=== PATIENT | male | born 1955 | race Two or more races ===

== ENCOUNTER 2017-06-07 08:02 | Inpatient (IN) | payer OTHER ==
[~2017-06-07] VITALS: Ht 177.8 cm; Wt 98.0 kg
[2017-06-07] VITALS (14 sets, daily range): BP systolic 104–148; BP diastolic 69–95
[~2017-06-07 08:02] MED LIST: ceFAZolin 2gm/50ml Premix 50 ML IVPB ONE
[2017-06-07] MEDS ORDERED: SIMVASTATIN20 MG ORAL (08:58)
[2017-06-07] MEDS ORDERED: GABAPENTIN100 MG ORAL (09:01)
[2017-06-07] MEDS ORDERED: CYCLOBENZAPRINE10 MG ORAL (09:01)
[2017-06-07] MEDS ORDERED: MELOXICAM15 MG PO (09:01)
[2017-06-07] MEDS ORDERED: Thrombin 5000 units TOPIC ONE (09:47)
[2017-06-07] MEDS ORDERED: Vancomycin 1gm inj IVPB ONE (09:48)
[2017-06-07] MEDS ORDERED: Lacri-Lube Opth Oint 3.5gm ONE (09:48)
[2017-06-07] MEDS ORDERED: Bupivacaine w/Epi 0.5% 30ml Vial INJ ONE (09:48)
[2017-06-07] MEDS ORDERED: Thrombin 5000 units spray kit TOPIC ONE (09:48)
[2017-06-07] MEDS ORDERED: Gelfoam Absorbable 1gm powder pkt TOPIC ONE (09:49)
[2017-06-07] MEDS ORDERED: Bacitracin 50000 Units Vial ONE (09:49)
[2017-06-07] MEDS ORDERED: Propofol 10mg/ml 100ml btl IV ONE (11:00)
[2017-06-07] MEDS ORDERED: Sterile Water Irrig 1000ml IRRIG ONE (11:00)
[2017-06-07] MEDS ORDERED: NS Irrig 1000ml ONE (11:00)
[2017-06-07] MEDS ORDERED: Neostigmine 1mg/ml 10ml Inj ONE (11:00)
[2017-06-07] MEDS ORDERED: LR 1000ml ONE (11:00)
[2017-06-07] MEDS ORDERED: Glycopyrrolate 0.2mg/ml 1ml Vial ONE (11:00)
[2017-06-07] MEDS ORDERED: fentaNYL 100 mcg/2 mL IV ONE (11:00)
[2017-06-07] MEDS ORDERED: Zemuron 50mg/5ml Inj IV ONE (11:00)
[2017-06-07] MEDS ORDERED: Midazolam 2mg/2ml Inj ONE (11:00)
--- NOTE | 2017-06-07 11:06 | Pre-Procedure Note/Attestation ---
Pre-Procedure Note/Attestation Complete Prior to Procedure Procedure Narrative: left L5S1 microdecompression and microdiscectomy Indications for Procedure Pre-Operative Diagnosis: lumbar radiculopathy Attestation I attest that I discussed the nature of the procedure; its benefits; risks and complications; and alternatives (and the risks and benefits of such alternatives ), prior to the procedure, with the patient (or the patient's legal community health representative). I attest that, if there was a reasonable possibility of needing a blood transfusion, the patient (or the patient's legal community health representative) was given the [facility] standardized written summary, pursuant to the Elvis Villanova Blood Safety Act ([place] Health and Safety Code # 1645, as amended). I attest that I re-evaluated the patient just prior to the surgery and that there has been no change in the patient's H&P, except as documented below: SHERRY JOSEPH Jun 07, 2017 11:06
[2017-06-07] MEDS ORDERED: HYDROmorphone 1mg/ml Carpuject SUBQ PRN (11:15)
[2017-06-07] MEDS ORDERED: Norco 7.5mg/325mg tab ORAL PRN ×2 (11:15)
[2017-06-07] MEDS ORDERED: Naloxone 0.4mg/ml Inj IVP PRN (11:15)
[2017-06-07] MEDS ORDERED: Norco 5mg/325mg tab ORAL PRN (11:15)
[2017-06-07] MEDS ORDERED: NORCO 5-325 TA1 EACH ORAL (11:16)
[2017-06-07] MEDS ORDERED: SOMA350 MG PO (11:17)
[2017-06-07] MEDS: Hydromorphone 0.5mg/0.5ml inj IVP PRN ×2 (12:09→14:19)
--- NOTE | 2017-06-07 12:48 | Brief Operative Note ---
Immediate Post Operative Note Operative Note Pre-op Diagnosis: lumbar radiculopathy Procedure: L5S1 microdecompression and microdiscectomy Post-op Diagnosis: same as pre-op Findings: consistent w/pre-op dx studies Surgeon: She Site Identification Specialist: Elan Anesthesiologist: Stephanie Anesthesia: general Specimen: none Complications: none Condition: stable Fluids: 1.1 liters crystalloid Estimated Blood Loss: minimal - 10cc Drains: none Implant(s) used?: No SHERRY JOSEPH Jun 07, 2017 12:48
[2017-06-07] MEDS ORDERED: LR 1000ml 1,000 ML IVLG SCH (13:12)
[2017-06-07] MEDS ORDERED: Hydromorphone 0.5mg/0.5ml inj ONE (13:12)
--- NOTE | 2017-06-07 13:12 | Anethesia Preoperative Eval ---
Anesthesia Pre-op PMH/ROS General Date of Evaluation: Jun 07, 2017 Time of Evaluation: 11:00 Anesthesiologist: Stephanie ASA Score: ASA 1 Mallampati Score Class I : Soft palate, uvula, fauces, pillars visible Class II: Soft palate, uvula, fauces visible Class III: Soft palate, base of uvula visible Class IV: Only hard plate visible Mallampati Classification: Class II Surgeon: She Diagnosis: Lumbar Radiculopathy Surgical Procedure: Microdiscectomy Family History: no anesthesia problems Allergies: Coded Allergies: No Known Allergies (Unverified , 06/04/17) Medications: see eMAR Past Medical History Cardiovascular: Denies: CAD, HTN, ME, arrhythmia, other, valve dz Pulmonary: Denies: COPD, LUCIE, asthma, other Gastrointestinal/Genitourinary: Denies: CRI, ESRD, GERD, other Neurologic/Psychiatric: Denies: CVA, TIA, dementia, depression/anxiety, other Endocrine: Denies: DM, hypothyroidism, other, steroids HEENT: Denies: [place] (L), [place] (R), cataract (L), cataract (R), glaucoma, other Hematology/Immune: Denies: DVT, anemia, bleeding disorder, other Musculoskeletal/Integumentary: Denies: DDD, DJD, OA, RA, edema, other PMH Narrative: Denies PSxH Narrative: Intestinal blockage, ankle Anesthesia Pre-op Phys. Exam Physician Exam Last Vital Signs Date Time Temp Pulse Resp B/P Pulse Ox O2 Delivery O2 Flow Rate FiO2 06/07/17 08:56 97.0 66 18 142/85 98 Room Air Constitutional: NAD Neurologic: CN 2-12 intact Cardiovascular: RRR, no M/R/G Respiratory: CTA Gastrointestinal: S/NT/ND Airway Exam Mallampati Score: Class II MO: full ROM: full Teeth: intact Anesthesia Pre-op A/P Labs Wnl Studies Pre-op Studies: EKG - nsr Risk Assessment & Plan Assessment: Healthy male Plan: GETA Status Change Before Surgery: No Pre-Antibiotics Drug: Ancef Given Within 1 Hr of Incision: Yes Time Given: 11:15 YUMI LIM M.D. Jun 07, 2017 13:12
[2017-06-07] MEDS ORDERED: LORazepam Inj 2mg/ml 1ml IV PRN (13:15)
[2017-06-07] MEDS ORDERED: DiphenhydrAMINE 50mg/ml Inj IVP PRN (13:15)
[2017-06-07] MEDS ORDERED: Meperidine 25mg/0.5ml Inj (FOR RIGORS ONLY) IV PRN (13:15)
--- NOTE | 2017-06-07 13:16 | Immediate Post-Op Evaluation ---
Immediate Post-Op Evalulation Immediate Post-Op Evalulation Procedure: Microdiscectomy Date of Evaluation: Jun 07, 2017 Time of Evaluation: 13:15 IV Fluids: 1100 Estimated Blood Loss: 10 Blood Pressure Systolic: 113 Blood Pressure Diastolic: 81 Pulse Rate: 85 Respiratory Rate: 23 O2 Sat by Pulse Oximetry: 95 Temperature (Fahrenheit): 97.4 Pain Score (1-10): 3 Nausea: No Vomiting: No Complications No complication Patient Status: awake, patent, extubated, none Hydration Status: adequate Drug: Ancef Given Within 1 Hr of Incision: Yes Time Given: 11:15 YUMI LIM M.D. Jun 07, 2017 13:16
[2017-06-07] MEDS ORDERED: CEPHALEXIN500 MG ORAL (15:33)
[2017-06-07] MEDS ORDERED: D5 1/2NS 1,000 ML IV SCH (16:00)
--- NOTE | 2017-06-07 16:49 | Diagnostic Imaging Report ---
Indication: PAIN, intraoperative Technique: Digital intraoperative images Comparison: Findings: Intraoperative images demonstrate surgical tool posterior to what is presumably L5-S1 disc. Impression: Intraoperative images, as described
[2017-06-07] MEDS ORDERED: Docusate 100mg cap ORAL SCH (18:00)
[2017-06-07] MEDS ORDERED: ceFAZolin sod 1 GM in D5W 55 ML IV SCH (20:00)
--- NOTE | 2017-06-07 20:46 | Operative Note - Dictated ---
DATE OF OPERATION: 06/07/2017 PREOPERATIVE DIAGNOSIS: L5-S1 disk extrusion with stenosis and left lower extremity radiculopathy. POSTOPERATIVE DIAGNOSIS: L5-S1 disk extrusion with stenosis and left lower extremity radiculopathy. PROCEDURES PERFORMED: 1. Left L5-S1 medial facetectomy, inter-lumbar laminotomies, foraminotomy and microdiskectomy. 2. Intraoperative use of fluoroscopy. 3. Intraoperative use of microscope. SURGEON: Roberth Nowak M.D. [employer] SUPERVISOR: Williams Ansari M.D. ANESTHESIA: General tracheal anesthesia. ANESTHESIOLOGIST: Elvis Brown M.D. ESTIMATED BLOOD LOSS: 10 mL. INTRAOPERATIVE FINDINGS: Disk extrusion at L5-S1 with lateral recess stenosis and foraminal stenosis with compression of the traversing and exiting S1 nerve root on the left and exiting L5 nerve root on the left. FLUIDS: A 1.1 liters of crystalloid. INDICATIONS: This is a pleasant gentleman, who has failed nonoperative treatments. Recommendation for above treatment was given. Risks, alternatives, and benefits were discussed with the patient at length. Risks include, but are not limited to, anesthesia complications including , medical complications including liver, kidney, cardiopulmonary deficits, bleeding, infection, dural tear, CSF leak, nerve root injury, pars fracture, instability, reherniation, and continued symptoms. The patient understood and wished to proceed. Written and verbal consent was given. OPERATION IN DETAIL: The patient was brought in to the operating room supine on a stretcher. Subsequently, appropriate IV lines were placed. A 2 g of Ancef was administered. Anesthesia was induced and the patient was successfully intubated. Sequential compression devices were placed. The patient was gently turned prone on the Servando frame table. All bony prominences were well padded and the abdomen was assured to lay freely. The L5-S1 interspace was positively identified with fluoroscopy. An indelible marker was used to monae the midline. The patient was prepped and draped in the usual sterile fashion with alcohol, chlorhexidine scrub, ChloraPrep, and Ioban draping. An incision was carried out over the L5-S1 interspace. Superficial hemostasis was achieved. At this point, a subperiosteal dissection of the lamina on the left side at L5 and S1 was carried out and a operating room specialist retractor was then placed. The superficial ligamentum was removed and a radiopaque marker was placed at the level of the S1 pedicle. Lateral fluoroscopy revealed the S1 pedicle and thus the L5-S1 interspace. At this point, the compression was begun. The intraoperatively sterilely draped microscope was used from the very beginning of the case to the end. A high-speed drill was used to do a medial facetectomy and an inter-lumbar laminotomy and removal of the ligament flavum was done with the aid of a #2 through #5 Kerrison punches as well as a nerve hook and a straight and curved curettes. The lateral recess was found to be stenosed and a complete decompression of the lateral recesses posteriorly was done until all bone was removed to the level of the medial aspect of the pedicle and the pedicle was flushed. At this point, the foramina was probed and there was foraminal stenosis. A #2 Kerrison was used to remove the superior tip of the superior articular process of S1 for complete decompression of the exiting L5 nerve root. Once this was accomplished, a Shipman ball was used in the foramina and a complete decompression of the foramina was assured. Now, attention was diverted to the disk space with a Blanch 4 and a nerve root retractor. The medial aspect of the S1 traversing nerve was gently retracted including the thecal sac for visualization of the disk. Bipolar cautery was used to cauterize the epidural veins. There was minimal to no bleeding. At this point, a disc herniation was found and an extrusion of the disk was found posterior to the body of the L5 vertebral body. A horizontal slit incision was carried out with a #11 blade, and with the aid of Keith curette, a nerve hook, as well as straight and forward and backward angled pituitary rongeur, as well as Keith curette and a PeaPod, a diskectomy was carried out. All disk material was removed and with a Peapod and the forward angled pituitary, disk was removed from the central aspect of towards the right side. A final check of the floor of the canal was done and floor of the canal was flat and complete decompression of the thecal sac in the traversing S1 nerve root entailed. The exiting L5 nerve root was patent and free. At this point, disk space irrigation was done. All loose disk material was removed. The Valsalva was done. There was no CSF leak and now, attention was diverted to closure. The wound was copiously irrigated with triple antibiotic solution. FloSeal was used as well as Gelfoam and thrombin for hemostasis. There was no bleeding. Estimated blood loss was 10 mL. A 1 mL of vancomycin powder was placed into the wound. The dorsal lumbar fascia was closed with #1 Vicryl sutures in an interrupted watertight fashion. The subdermal and subcuticular layers were closed with 2-0 Vicryl. The skin was closed with a Dermabond. Sterile dressing and tape was placed. The patient was turned supine, was extubated in stable condition, and was taken to recovery room in stable condition and found to be neurovascularly intact. Roberth Nowak M.D. DR: CHANDANA JOB#: [id number] CC:
--- NOTE | 2017-06-08 07:26 | Discharge Summary ---
Discharge Summary Hospital Course Date of Admission Jun 07, 2017 at 08:02 Date of Discharge Jun 07, 2017 at 19:30 Admitting Diagnosis lumbar radiculopathy Reason for Hospitalization: elective surgery HPI Martinez Underwood is a 61 year old male who was admitted on Jun 07, 2017 for lumbar radiculopathy for elective surgery Procedures 06/07/[address] Nowak 1. Left L5-S1 medial facetectomy, inter-lumbar laminotomies, foraminotomy and microdiskectomy. 2. Intraoperative use of fluoroscopy. 3. Intraoperative use of microscope. Hospital Course s/p surgery course of recovery uneventul neurovascular intact incision C/D/I pain addressed, managed and controlled ambulated tolerated diet voided freely cleared for dc home fup with surgeon as outpatient FINAL DIAGNOSIS lumbar radiculopathy L5S1 microdecompression and microdiscectomy Discharge Medications Continued Medications: Carisoprodol* (Soma*) 350 Mg Tablet 350 MG PO TID, #30 TAB Cephalexin* (Keflex*) 500 Mg Capsule 500 MG ORAL QID for 1 Day, #4 CAP 0 Refills Cyclobenzaprine Hcl* (Flexeril*) 10 Mg Tablet 10 MG ORAL PRN, TAB Gabapentin* (Gabapentin*) 100 Mg Capsule 100 MG ORAL PRN, CAP Hydrocodone Bit/Acetaminophen 5-325* (Hampton 5-325*) 1 Each Tablet 1 TAB ORAL Q4H PRN for For Pain, #40 TAB 0 Refills Meloxicam* (Meloxicam*) 15 Mg Tablet 15 MG PO DAILY, TAB Simvastatin (Zocor) 20 Mg Tablet 20 MG ORAL BEDTIME, TAB Discharge Condition Upon Discharge: stable Discharge Disposition Patient was discharged to Home () Discharge Diagnoses: Discharge Instructions Discharge Instructions Special Instructions I have been assigned to complete a D/C Summary on this account. I was not involved in the patient management Josefina Nesbitt NP (Vanchtein) Jun 08, 2017 07:26
[2017-06-08 10:51] VITALS: BP 148/95
--- NOTE | 2017-06-08 10:51 | 48 Hour Post Anesthesia Eval ---
Post Anesthesia Evaluation Procedure: Microdiscectomy Date of Evaluation: Jun 08, 2017 Time of Evaluation: 10:50 Blood Pressure Systolic: 148 0: 95 Pulse Rate: 67 Respiratory Rate: 20 Temperature (Fahrenheit): 98.2 O2 Sat by Pulse Oximetry: 97 Airway: patent Nausea: No Vomiting: No Pain Intensity: 1 Hydration Status: adequate Cardiopulmonary Status: Stable Mental Status/LOC: patient returned to baseline Follow-up Care/Observations: As per surgery Post-Anesthesia Complications: Patient has been discharged. Follow-up care needed: N/A YUMI LIM M.D. Jun 08, 2017 10:51
== END 2017-06-07 19:30 | disposition home or self-care (01) | DRG 520 ==
LOC: SDSOVERFLO 08:02 → 3E 14:58
PROC: 0SB40ZZ Excision of Lumbosacral Disc, Open Approach (ICD-10-PCS; principal; 2017-06-07 10:30)
PROC: 01NB0ZZ Release Lumbar Nerve, Open Approach (ICD-10-PCS; principal; 2017-06-07 10:30)
DX: M51.17 Intervertebral disc disorders with radiculopathy, lumbosacral region (principal); E78.00 Pure hypercholesterolemia, unspecified; M48.07 Spinal stenosis, lumbosacral region; Z79.891 Long term (current) use of opiate analgesic; E66.9 Obesity, unspecified
CPT/HCPCS: 72020; 76000; 87081; 94003; 94150; J2250; J2405; J2710